=== PATIENT | female | born 1930 | race Caucasian/White ===

== ENCOUNTER 2019-12-01 05:51 | Emergency (ER) | payer MEDICARE ==
[~2019-12-01] VITALS: Ht 139.7 cm; Wt 54.4 kg
[2019-12-01 05:55] VITALS: BP_SYST 160
--- NOTE | 2019-12-01 05:55 | NUR ---
Patient to ER bed 06 to gown for evaluation. Side rails up. Report given to NICHOL Salinas.
--- NOTE | 2019-12-01 05:58 | NUR ---
Pt BIB EMS with c/o medical clearance. Pt states she was sleeping and rolled off her bed and "got stuck in between the wall and the bed." Pt states she felt trapped. Pt states she pressed her medic alert bracelet when she felt trapped. Pt states when she was trapped she had right shoulder pain. Pt states she is in no pain now but has history of cervical spine issues and "wants to be checked out." Will continue to monitor.
--- NOTE | 2019-12-01 06:03 | NUR ---
ER Dr. Sanchez at bedside examining patient.
[2019-12-01 06:20] VITALS: BP_SYST 160
--- NOTE | 2019-12-01 06:20 | NUR ---
Patient given written and verbal discharge instructions and verbalizes understanding. ER MD Sanchez discussed with patient the results and treatment provided. Patient in stable condition. ID arm band removed. No Rx given. Patient educated on pain management and to follow up with PMD. Pain Scale 0/10. Opportunity for questions provided and answered. Medication side effect fact sheet provided.
== END 2019-12-01 06:20 | disposition home or self-care (01) ==
LOC: SED 05:51
DX: M25.511 Pain in right shoulder (principal); I10 Essential (primary) hypertension
CPT/HCPCS: 99283